=== PATIENT | male | born 1965 | race Hispanic/Latino ===

== ENCOUNTER 2024-04-14 16:08 | Emergency (ER) | payer OTHER ==
[2024-04-14] MEDS ORDERED: LIDOCAINE 1% 20 ML MDV ONE (16:47)
--- NOTE | 2024-04-14 17:16 | RAD REPORT ---
Exam:Hand Left 3 View CLINICAL HISTORY: Left hand pain FINDINGS: Avulsion fracture third terminal tuft. Additional avulsion fracture fourth distal phalanx of indeterminate age. No dislocation
--- NOTE | 2024-04-14 17:39 | ER ---
Nurse's Notes [facility] Name: Morgan Toussaint Age: 58 yrs Sex: Male : 1965 Arrival Date: 04/14/2024 Time: 16:08 Bed 4 Private MD: Diagnosis: Finger Fracture;Nail Avulsion Presentation: 04/14 16:35 Chief complaint: Patient states: CRUSH INJURY TO 3RD FINGER. STATES DROPPED A PLANK ON db FINGER WHILE WORKING. NOTED BLEEDING CONTROLLED. Coronavirus screen: Client denies travel out of the [place] in the last 14 days. At this time, the client does not indicate any symptoms associated with coronavirus-19. Ebola Screen: Patient negative for fever greater than or equal to 101.5 degrees Fahrenheit, and additional compatible Ebola Virus Disease symptoms Patient denies exposure to infectious person. Patient denies travel to an Ebola-affected area in the 21 days before illness onset. No symptoms or risks identified at this time. Initial Sepsis Screen: Does the patient meet any 2 criteria? No. Patient's initial sepsis screen is negative. Does the patient have a suspected source of infection? No. Patient's initial sepsis screen is negative. Risk Assessment: Do you want to hurt yourself or someone else? Patient reports no desire to harm self or others. Onset of symptoms was April 14, 2024. 16:35 Method Of Arrival: Ambulatory db 16:35 Acuity: AUGUSTINE 3 db Triage Assessment: 16:35 General: Appears in no apparent distress. comfortable, Behavior is calm, cooperative. db Pain: Complains of pain in left hand. Neuro: Level of Consciousness is awake, alert, obeys commands, Oriented to person, place, time, situation. Respiratory: Airway is patent Respiratory effort is even, unlabored, Respiratory pattern is regular, symmetrical. Musculoskeletal: Circulation, motion, and sensation intact. Capillary refill Range of motion: limited in DIP of left middle finger. Injury Description: Crush injury sustained to left middle finger. Historical: - Allergies: 16:45 No Known Allergies; db - Home Meds: 16:45 Lisinopril Oral [Active]; db - PMHx: 16:45 Hypertensive disorder; Hypercholesterolemia; db - Immunization history:: Adult Immunizations unknown. - Infectious Disease History:: Denies. - Social history:: Smoking status: Patient denies any tobacco usage or history of. Screenin:48 [facility] ED Fall Risk Assessment (Adult) History of falling in the last 3 months, tm6 including since admission No falls in past 3 months (0 pts) Confusion or Disorientation No (0 pts) Intoxicated or Sedated No (0 pts) Impaired Gait No (0 pts) Mobility Assist Device Used No (0 pt) Altered Elimination No (0 pt) Score/Fall Risk Level 0 - 2 = Low Risk Oriented to surroundings, Maintained a safe environment, Educated pt \T\ family on fall prevention, incl call for assistance when getting out of bed. Abuse screen: Denies threats or abuse. Denies injuries from another. Nutritional screening: No deficits noted. Tuberculosis screening: No symptoms or risk factors identified. Assessment: 16:48 General: Appears in no apparent distress. Behavior is calm, cooperative. Pain: tm6 Complains of pain in left middle finger and left ring finger Pain currently is 3 out of 10 on a pain scale. Neuro: Level of Consciousness is awake, alert, obeys commands, Oriented to person, place, time, situation. Cardiovascular: Patient's skin is warm and dry. Respiratory: Airway is patent Respiratory effort is even, unlabored, Respiratory pattern is regular, symmetrical. GI: No signs and/or symptoms were reported involving the gastrointestinal system. Abdomen is round non-distended. : No signs and/or symptoms were reported regarding the genitourinary system. EENT: No signs and/or symptoms were reported regarding the EENT system. Derm: Wound noted left middle finger and left ring finger Wound is crush injury. Left middle finger nail hanging off. Left ring finger nail purple. Some bleeding to left middle finger nail. Musculoskeletal: Reports pain in left middle finger and left ring finger. Injury Description: Crush injury sustained to left middle finger and left ring finger. 17:00 Reassessment: No changes from previously documented assessment. L hand soaking in ll1 Betadine and saline. 18:02 Reassessment: Patient and/or family updated on plan of care and expected duration. Pain tm6 level reassessed. Patient is alert, oriented x 3, equal unlabored respirations, skin warm/dry/pink. Vital Signs: 16:35 BP 167 / 99; Pulse 73; Resp 16; Temp 98; Pulse Ox 98% ; Weight 104.33 kg; db 18:00 BP 154 / 92; Pulse 61; Resp 17; Temp 98; Pulse Ox 98% on R/A; Pain 2/10; tm6 18:00 Pain Scale: Adult tm6 ED Course: 16:12 Patient arrived in ED. im 16:16 Kenrick Garcia MD is Attending Physician. ec2 16:35 Arm band placed on Patient placed in an exam room. db 16:40 Fred Henson, RN is Primary Nurse. tm6 16:45 Triage completed. db 16:48 Patient has correct armband on for positive identification. Bed in low position. Call tm6 light in reach. Side rails up X 1. Provided Education on: plan of care. Client placed on continuous cardiac and pulse oximetry monitoring. NIBP monitoring applied. Pulse ox on. NIBP on. 17:06 Hand Left 3 View XRAY In Process Unspecified. EDMS 17:38 Petr Lucas MD is Referral Physician. ec2 18:02 No provider procedures requiring assistance completed. Patient did not have IV access tm6 during this emergency room visit. Administered Medications: 17:04 Drug: Lidocaine Infiltration (1 %) 20 ml 20 ml Infiltration once; to bedside {Note: tm6 administered by MD.} Volume: 20 ml; Route: Infiltration; 17:55 Drug: Amoxicillin-Clavulanate PO 875 mg PO once Route: PO; tm6 18:03 Follow up: Response: Medication administered at discharge. tm6 Medication: 16:48 VIS not applicable for this client. tm6 Outcome: 17:38 Discharge ordered by MD. ec2 18:02 Discharged to home ambulatory, tm6 18:02 Condition: stable 18:02 Discharge instructions given to patient, Instructed on discharge instructions, follow up and referral plans. medication usage, Demonstrated understanding of instructions, follow-up care, medications, Prescriptions given X 1, 18:03 Patient left the ED. tm6 Signatures: Dispatcher [employer] EDDavin Griffin RN RN 1 Danay Leyva RN RN Flora Jacinto Kenrick Garcia MD MD ec2 Fred Henson RN RN tm6
--- NOTE | 2024-04-14 17:39 | EDPHYS ---
Physician Documentation [facility] Name: Morgan Toussaint Age: 58 yrs Sex: Male : 1965 Arrival Date: 04/14/2024 Time: 16:08 Bed 4 Private MD: Kenrick Whatley HPI: 04/14 16:46 This 58 yrs old Male presents to ER via Ambulatory with complaints of Finger ec2 Injury - crush injury to middle finger left hand. 16:46 Patient arrives today for evaluation of a left hand injury. Patient reports that he had ec2 some scaffolding fall in his left hand. Complaining of pain to the left middle and ring finger. Unsure of last tetanus shot.. Historical: - Allergies: 16:45 No Known Allergies; db - Home Meds: 16:45 Lisinopril Oral [Active]; db - PMHx: 16:45 Hypertensive disorder; Hypercholesterolemia; db - Immunization history:: Adult Immunizations unknown. - Infectious Disease History:: Denies. - Social history:: Smoking status: Patient denies any tobacco usage or history of. ROS: 16:46 Constitutional: as per hpi ec2 Exam: 16:46 Constitutional: GEN: NAD Head: atraumatic Eyes: EOMI Ears: External ears are ec2 normal. CV: regular rate LUNGS: no respiratory distress ABD: non-distended SKIN: no evidence of rashes MSK: Left middle finger with significant nailbed disruption, with nail completely avulsed. Left ring finger contusion to the distal tip. Vital Signs: 16:35 BP 167 / 99; Pulse 73; Resp 16; Temp 98; Pulse Ox 98% ; Weight 104.33 kg; db 18:00 BP 154 / 92; Pulse 61; Resp 17; Temp 98; Pulse Ox 98% on R/A; Pain 2/10; tm6 18:00 Pain Scale: Adult tm6 Procedures: 17:01 Nerve block: (digital) of dorsal aspect of proximal phalanx of left middle finger and ec2 palmar aspect of proximal phalanx of left middle finger Medication: Lidocaine 1% without epinephrine Amount: 10 mls were injected, Effect: the patient's symptoms are improved, moderately, Set up for procedure. Performed by Kenrick Garcia MD Patient tolerated well. MDM: 16:43 Medical Screening Exam initiated ec2 16:46 Data reviewed: vital signs, nurses notes. ED course: Patient arrives today for ec2 evaluation of a hand injury. Examination yields hand findings as above. Will perform digital nerve block, cleaned up the wound and further investigate. Additionally will obtain x-ray. Differential diagnosis includes open fracture, finger laceration, nailbed avulsion.. 17:37 ED course: I irrigated the wound with Betadine and normal saline, was able to relocate ec2 the avulsed fingernail. I placed the patient in a finger splint and instructed patient to urgently follow-up with orthopedic surgery for further hand evaluation, empirically start the patient antibiotics. I gave the patient strict return precautions.. 04/14 16:16 Order name: Hand Left 3 View XRAY; Complete Time: 17:18 ec2 04/14 16:45 Order name: Wound Care; Complete Time: 17:44 ec2 Administered Medications: 17:04 Drug: Lidocaine Infiltration (1 %) 20 ml 20 ml Infiltration once; to bedside {Note: tm6 administered by MD.} Volume: 20 ml; Route: Infiltration; 17:55 Drug: Amoxicillin-Clavulanate PO 875 mg PO once Route: PO; tm6 18:03 Follow up: Response: Medication administered at discharge. tm6 Disposition Summary: 04/14/24 17:38 Discharge Ordered Condition: Stable ec2 Diagnosis - Finger Fracture ec2 - Nail Avulsion ec2 Followup: ec2 - With: Petr Lucas MD - When: - Reason: Recheck today's complaints Discharge Instructions: - Discharge Summary Sheet ec2 - Finger Fracture, Adult, [id number] ec2 Forms: - Medication Reconciliation Form ec2 - Antibiotic Education ec2 - Prescription Opioid Use ec2 - Patient Portal Instructions ec2 - Leadership Thank You Letter ec2 Prescriptions: - Augmentin 875-125 mg Oral Tablet - take 1 tablet ORAL route every 12 hours for 10 days; 20 tablet; Refills: 0, ec2 Product Selection Permitted Signatures: Dispatcher [employer] Danay Rea, RN RN Kenrick Garcia MD MD ec2 Fred Henson RN RN tm6
[2024-04-14] MEDS ORDERED: AMOX/K CLAV 875 MG TAB ONE (17:50)
[2024-04-14 18:07] VITALS: TEMP 98; O2SAT 98
[2024-04-14 18:08] VITALS: BP 154/92
== END 2024-04-14 18:03 | disposition home or self-care (01) ==
LOC: ER 16:08
DX: S62.603A Fracture of unspecified phalanx of left middle finger, initial encounter for closed fracture (principal); S62.665A Nondisplaced fracture of distal phalanx of left ring finger, initial encounter for closed fracture; S61.303A Unspecified open wound of left middle finger with damage to nail, initial encounter; W20.8XXA Other cause of strike by thrown, projected or falling object, initial encounter; Y93.89 Activity, other specified; Y92.9 Unspecified place or not applicable; Y99.0 Civilian activity done for income or pay; I10 Essential (primary) hypertension; E78.00 Pure hypercholesterolemia, unspecified
CPT/HCPCS: 73130; 64450; 99284; J2003